=== PATIENT | female | born 1975 | race Two or more races ===

== ENCOUNTER 2022-10-15 12:15 | Emergency (ER) | payer OTHER ==
[~2022-10-15] VITALS: Ht 167.6 cm; Wt 63.5 kg
== END 2022-10-15 16:17 | disposition home or self-care (01) ==
LOC: ER 12:15
DX: N39.0 Urinary tract infection, site not specified (principal); R10.2 Pelvic and perineal pain; Z88.8 Allergy status to other drugs, medicaments and biological substances